=== PATIENT | male | born 1940 | race Caucasian/White ===

== ENCOUNTER 2017-01-13 15:34 | Inpatient (IN) | payer BC ==
[2017-01-13] VITALS (225 sets, daily range): BP systolic 71–120; BP diastolic 36–83; PULSE 98–135; TEMP 97.7; O2SAT 89–100
[~2017-01-13] VITALS: Ht 177.8 cm; Wt 105.3 kg
[~2017-01-13 15:34] MED LIST: ASPI325T6 PO; DIOVAN HCT PO; GLIPIZIDE XL5 MG PO; GLUCOTROL 5M5 MG/TAB PO; ROXICODONE 55 MG/TAB PO; ULTRAM 50MG TAB50 MG PO
[2017-01-13] MEDS ORDERED: CALCIUM 600MG+D1 TAB PO (15:59)
[2017-01-13 16:06] LABS: HEMOGLOBIN 12.9 g/dl (13.5-18.0); MEAN CELL VOLUME 108 fl (80.0-100.0); MEAN CORPUSCULAR HEMOGLOBIN 40 pg (27.0-31.0); MEAN CORPUSCULAR HGB CONC 37 g/dl (33.0-37.0); MEAN PLATELET VOLUME 11.2 fl (7.4-10.4); PLATELET COUNT 155 K/mm3 (130-400); RED BLOOD COUNT 3.22 M/mm3 (4.20-5.60); REDCELL DISTRIBUTION WIDTH-CV 14.6 % (11.5-14.5); WHITE BLOOD COUNT 12.3 K/mm3 (4.8-10.8)
[2017-01-13 16:07] LABS: INR 1.7 (0.8-3.0); PROTHROMBIN TIME 18.8 SECONDS (9.7-12.8)
[2017-01-13 16:13] LABS: ADD PATHOLOGY DIFF REVIEW NO; HEMATOCRIT 34.9 % (42.0-52.0)
[2017-01-13 16:23] LABS: ADJUSTED CALCIUM 9.7 mg/dL (8.4-10.2); ALANINE AMINOTRANSFERASE 16 U/L (21-72); ALBUMIN 3.3 gm/dL (3.5-5.0); ALKALINE PHOSPHATASE 157 U/L (50-136); ANION GAP 11 mmol/L (7-16); BILIRUBIN,TOTAL 7.1 mg/dL (0.0-1.0); BLOOD UREA NITROGEN 13 mg/dL (9-20); CALCIUM 9.1 mg/dL (8.4-10.2); CARBON DIOXIDE 22 mmol/L (22-30); CHLORIDE 96 mmol/L (98-107); CREATININE, serum 1.17 mg/dL (0.66-1.25); GLUCOSE 133 mg/dL (74-106); LIPASE 448 U/L (23-300); POTASSIUM 4.2 mmol/L (3.4-5.0); SODIUM 129 mmol/L (137-145); TOTAL PROTEIN 8.7 gm/dL (6.4-8.2)
[2017-01-13 16:35] LABS: B-TYPE NATRIURETIC PEPTIDE 1320 pg/mL (0-450); TROPONIN-I 0.018 ng/mL (0.000-0.034)
[2017-01-13 16:42] LABS: BAND 18 % (0-10); EOSINOPHIL 1 % (0-4); NEUTROPHILS 46 % (42.0-75.2); TOTAL CELLS COUNTED 100
[2017-01-13 18:30] LABS: CHOLESTEROL 137 mg/dL (120-200); HDL CHOLESTEROL 30 mg/dL; LDL CHOLESTEROL 86 mg/dL; TRIGLYCERIDE 103 mg/dL
[2017-01-13 18:40] LABS: PARTIAL THROMBOPLASTIN TIME 40.2 SECONDS (26.0-37.0)
[2017-01-14] VITALS (915 sets, daily range): BP systolic 85–113; BP diastolic 62–83; PULSE 71–137; TEMP 97.2–99.1; O2SAT 80–100
[2017-01-14 04:15] LABS: BASO # 0.1 (0.0-0.2); EOS # 0.1 (0.0-0.7); EOS % 1.3 % (0-4.0); GRAN # 7.1 (1.4-6.5); GRAN % 65.6 % (42.2-75.2); LYMPH # 2.2 (1.2-3.4); LYMPH % 19.9 % (20.0-51.0); MEAN CELL VOLUME 108 fl (80.0-100.0); MEAN CORPUSCULAR HGB CONC 37 g/dl (33.0-37.0); MEAN PLATELET VOLUME 10.5 fl (7.4-10.4); MONO # 1.3 (0.1-0.6); MONO % 11.8 % (1.7-9.3); PLATELET COUNT 124 K/mm3 (130-400); RED BLOOD COUNT 2.74 M/mm3 (4.20-5.60); REDCELL DISTRIBUTION WIDTH-CV 14.6 % (11.5-14.5); WHITE BLOOD COUNT 10.9 K/mm3 (4.8-10.8)
[2017-01-14 04:17] LABS: HEMATOCRIT 29.6 % (42.0-52.0); HEMOGLOBIN 10.9 g/dl (13.5-18.0); MEAN CORPUSCULAR HEMOGLOBIN 40 pg (27.0-31.0)
[2017-01-14 04:25] LABS: ADJUSTED CALCIUM 9.2 mg/dL (8.4-10.2); ALBUMIN 2.5 gm/dL (3.5-5.0); CREATININE, serum 0.97 mg/dL (0.66-1.25); MAGNESIUM 1.5 mg/dL (1.6-2.3); POTASSIUM 4.2 mmol/L (3.4-5.0)
[2017-01-14 04:27] LABS: INR 2.2 (0.8-3.0); PROTHROMBIN TIME 25.6 SECONDS (9.7-12.8)
[2017-01-14 04:37] LABS: TROPONIN-I 0.028 ng/mL (0.000-0.034)
[2017-01-14 04:44] LABS: BILIRUBIN,DIRECT 3.3 mg/dL (0.0-0.4); BILIRUBIN,TOTAL 6.3 mg/dL (0.0-1.0)
[2017-01-14 10:58] LABS: INR 2.3 (0.8-3.0); PROTHROMBIN TIME 26.2 SECONDS (9.7-12.8)
[2017-01-15] VITALS (834 sets, daily range): BP systolic 91–117; BP diastolic 68–90; PULSE 78–100; TEMP 97.6–98.7; O2SAT 74–100
[2017-01-15 06:10] LABS: INR 1.8 (0.8-3.0); PROTHROMBIN TIME 20.8 SECONDS (9.7-12.8)
[2017-01-15 06:11] LABS: BASO # 0.1 (0.0-0.2); BASO % 1.1 % (0.0-2.0); EOS # 0.2 (0.0-0.7); EOS % 2.9 % (0-4.0); GRAN # 5.3 (1.4-6.5); GRAN % 64.6 % (42.2-75.2); LYMPH # 1.6 (1.2-3.4); LYMPH % 19.8 % (20.0-51.0); MEAN CELL VOLUME 112 fl (80.0-100.0); MEAN CORPUSCULAR HGB CONC 36 g/dl (33.0-37.0); MONO # 0.9 (0.1-0.6); MONO % 11.2 % (1.7-9.3); PLATELET COUNT 125 K/mm3 (130-400); RED BLOOD COUNT 2.65 M/mm3 (4.20-5.60); REDCELL DISTRIBUTION WIDTH-CV 15.1 % (11.5-14.5); WHITE BLOOD COUNT 8.3 K/mm3 (4.8-10.8)
[2017-01-15 06:12] LABS: HEMATOCRIT 29.6 % (42.0-52.0); HEMOGLOBIN 10.6 g/dl (13.5-18.0); MEAN CORPUSCULAR HEMOGLOBIN 40 pg (27.0-31.0)
[2017-01-15 06:21] LABS: ADJUSTED CALCIUM 9.1 mg/dL (8.4-10.2); ALBUMIN 2.4 gm/dL (3.5-5.0); BILIRUBIN,TOTAL 6.5 mg/dL (0.0-1.0); CALCIUM 7.8 mg/dL (8.4-10.2); CREATININE, serum 0.88 mg/dL (0.66-1.25); POTASSIUM 3.9 mmol/L (3.4-5.0); TOTAL PROTEIN 6.9 gm/dL (6.4-8.2)
[2017-01-15 06:30] LABS: TROPONIN-I 0.018 ng/mL (0.000-0.034)
[2017-01-15 19:49] LABS: HEMATOCRIT REF 32.2 % (42.0-52.0)
[2017-01-16] VITALS (339 sets, daily range): BP systolic 70–109; BP diastolic 40–68; PULSE 72–81; TEMP 97.6–98.4; O2SAT 87–99
[2017-01-16 04:59] LABS: MEAN CELL VOLUME 110 fl (80.0-100.0); MEAN CORPUSCULAR HGB CONC 36 g/dl (33.0-37.0); MEAN PLATELET VOLUME 10.8 fl (7.4-10.4); PLATELET COUNT 126 K/mm3 (130-400); RED BLOOD COUNT 2.59 M/mm3 (4.20-5.60); REDCELL DISTRIBUTION WIDTH-CV 15.4 % (11.5-14.5); WHITE BLOOD COUNT 9.6 K/mm3 (4.8-10.8)
[2017-01-16 05:01] LABS: HEMATOCRIT 28.5 % (42.0-52.0); HEMOGLOBIN 10.3 g/dl (13.5-18.0); MEAN CORPUSCULAR HEMOGLOBIN 40 pg (27.0-31.0)
[2017-01-16 05:08] LABS: ALBUMIN 2.4 gm/dL (3.5-5.0); BILIRUBIN,TOTAL 5.3 mg/dL (0.0-1.0); CALCIUM 7.7 mg/dL (8.4-10.2); CREATININE, serum 1.05 mg/dL (0.66-1.25); TOTAL PROTEIN 6.9 gm/dL (6.4-8.2)
[2017-01-16] MEDS ORDERED: FOLIC ACID 11 MG/TA1 PO (08:46)
[2017-01-16] MEDS ORDERED: THIAMINE 1100 MG/TAB PO (08:46)
[2017-01-16] MEDS ORDERED: DUO-KAPS1 CAP PO (08:46)
[2017-01-16] MEDS ORDERED: TAMBOCOR50 MG PO (08:47)
== END 2017-01-16 10:22 | disposition home or self-care (01) | DRG 309 ==
LOC: COL.ER 15:34 → ICU 18:42
PROVIDERS: Emergency Medicine; Family Medicine; Internal Medicine Interventional Cardiology
PROC: 02HV33Z Insertion of Infusion Device into Superior Vena Cava, Percutaneous Approach (ICD-10-PCS; principal; 2017-01-14)
PROC: 5A2204Z Restoration of Cardiac Rhythm, Single (ICD-10-PCS; 2017-01-15)
DX: I48.92 Unspecified atrial flutter (principal); F10.239 Alcohol dependence with withdrawal, unspecified; K76.6 Portal hypertension; R18.8 Other ascites; K74.60 Unspecified cirrhosis of liver; E11.9 Type 2 diabetes mellitus without complications; D53.9 Nutritional anemia, unspecified; R23.8 Other skin changes; Y90.0 Blood alcohol level of less than 20 mg/100 ml
CPT/HCPCS: 99223-AI; 99233-AI; 99239; A9585; C1751; J1644; J1650; J2060; J2704; J3475; J3480; J7030; J7040; J7050; Q9967

== ENCOUNTER 2017-04-20 09:00 | Outpatient (RCR) | payer BC ==
[~2017-04-20 09:00] MED LIST changes: +CALCIUM 600MG+D1 TAB PO; +DUO-KAPS1 CAP PO; +FOLIC ACID 11 MG/TA1 PO; +TAMBOCOR50 MG PO; +THIAMINE 1100 MG/TAB PO
== END 2017-04-21 15:47 ==
LOC: WSPT 09:00
DX: M62.81 Muscle weakness (generalized) (principal)

== ENCOUNTER 2017-06-23 08:05 | Day surgery (SDC) | payer BC ==
[2017-06-23] VITALS (7 sets, daily range): BP systolic 92–108; BP diastolic 55–67; PULSE 52–66; TEMP 97.3–97.5
[~2017-06-23] VITALS: Ht 177.8 cm; Wt 102.9 kg
[2017-06-23] MEDS ORDERED: DIOVAN 80MG80 MG PO (08:51)
[2017-06-23] MEDS ORDERED: GLUCOTROL 5M5 MG/TAB PO (08:51)
[2017-06-23] MEDS ORDERED: BYSTOLIC5 MG PO (08:52)
[2017-06-23] MEDS ORDERED: PRILOSEC 20MG20 MG PO (08:52)
[2017-06-23] MEDS ORDERED: LASIX 40MG TABL40 MG PO (08:52)
[2017-06-23] MEDS ORDERED: NATURE'S BLEND100 M2 PO (08:53)
[2017-06-23] MEDS ORDERED: CALCIUM 600MG+D1 TAB PO (08:53)
[2017-06-23] MEDS ORDERED: MULTIPLE VITAMI1 TA5 PO (08:54)
[2017-06-23] MEDS ORDERED: ENULOSE10 GM/151 PO (08:55)
[2017-06-23 12:09] LABS: HEMOGLOBIN 12.6 g/dl (13.5-18.0); MEAN CELL VOLUME 101 fl (80.0-100.0); MEAN CORPUSCULAR HEMOGLOBIN 36 pg (27.0-31.0); MEAN CORPUSCULAR HGB CONC 36 g/dl (33.0-37.0); MEAN PLATELET VOLUME 10.8 fl (7.4-10.4); PLATELET COUNT 142 K/mm3 (130-400); REDCELL DISTRIBUTION WIDTH-CV 15.3 % (11.5-14.5)
[2017-06-23 12:12] LABS: INR 1.9 (0.8-3.0); PROTHROMBIN TIME 22.6 SECONDS (9.7-12.8)
[2017-06-23 12:13] LABS: HEMATOCRIT 35.5 % (42.0-52.0)
[2017-06-23 12:57] LABS: GLUCOSE,PLEURAL FLUID 103 mg/dL; TOTAL PROTEIN,PLEURAL FLUID 2.5 gm/dL
[2017-06-23 13:00] LABS: PLEURAL FLUID RBC 54000 /mm3 (0-0); PLEURAL FLUID WBC 484 /mm3
[2017-06-23 13:02] LABS: PLEURAL FLUID APPEARANCE BLOODY; PLEURAL FLUID COLOR RED
== END 2017-06-23 13:55 | disposition home or self-care (01) ==
LOC: SDCO 08:05 → EDSTATUS 09:30 → SDCO 13:55
PROVIDERS: Internal Medicine Pulmonary Disease
DX: R06.02 Shortness of breath (principal); K74.60 Unspecified cirrhosis of liver; J90 Pleural effusion, not elsewhere classified; E11.9 Type 2 diabetes mellitus without complications; Z88.0 Allergy status to penicillin; Z79.84 Long term (current) use of oral hypoglycemic drugs; G47.9 Sleep disorder, unspecified

== ENCOUNTER → 2017-10-06 | Outpatient (CLI) | payer BC ==
[~2017-10-06] MED LIST changes: +BYSTOLIC5 MG PO; +DIOVAN 80MG80 MG PO; +ENULOSE10 GM/151 PO; +LASIX 40MG TABL40 MG PO; +MULTIPLE VITAMI1 TA5 PO; +NATURE'S BLEND100 M2 PO; +PRILOSEC 20MG20 MG PO
== END ==
LOC: COL.RAD 09:29
DX: K70.31 Alcoholic cirrhosis of liver with ascites (principal); K80.20 Calculus of gallbladder without cholecystitis without obstruction; J90 Pleural effusion, not elsewhere classified

== ENCOUNTER → 2018-06-11 | Outpatient (CLI) | payer BC ==
[~2018-06-11] MED LIST changes: +GLUCOTROL XL2.5 MG PO; +K-DUR 10 MEQ T10 MEQ PO
== END ==
LOC: COL.RAD 06-08 09:45
DX: K70.31 Alcoholic cirrhosis of liver with ascites (principal); K80.20 Calculus of gallbladder without cholecystitis without obstruction; J90 Pleural effusion, not elsewhere classified

== ENCOUNTER → 2019-03-15 | Outpatient (CLI) | payer BC | LOC: COL.RAD 09:17 | DX: K70.31 Alcoholic cirrhosis of liver with ascites (principal); K80.20 Calculus of gallbladder without cholecystitis without obstruction ==